=== PATIENT | male | born 1980 | race Caucasian/White ===

== ENCOUNTER 2019-07-20 00:22 | Emergency (ER) | payer OTHER ==
[~2019-07-20] VITALS: Ht 180.3 cm; Wt 81.7 kg
[2019-07-20 01:15] VITALS: BP 142/75
== END 2019-07-20 01:15 | disposition home or self-care (01) ==
LOC: ER 00:22
DX: S90.511A Abrasion, right ankle, initial encounter (principal); W57.XXXA Bitten or stung by nonvenomous insect and other nonvenomous arthropods, initial encounter; Y92.89 Other specified places as the place of occurrence of the external cause; Y93.89 Activity, other specified; Y99.8 Other external cause status